=== PATIENT | male | born 1955 | race African-American/Black ===

== ENCOUNTER 2019-03-12 12:21 | Inpatient (IN) | payer MEDICAID ==
[~2019-03-12] VITALS: Ht 175.3 cm; Wt 79.8 kg
[~2019-03-12 12:21] MED LIST: ALBU18HF2 IH; DIAZ5TAB PO; DIVA250T4 PO; GLYB5TAB7 PO; HYDR-4009 MT; METF-414 PO; TIOT4MIS3 IH
[2019-03-12] MEDS ORDERED: IPRATROPIUM BROMIDE (0.02%) 0.5MG/2.5ML NEB HHN STA (13:03)
[2019-03-12] MEDS ORDERED: METHYLPREDNISOLONE SOD SUCC 125 MG/2 ML VIAL IV STA (13:03)
[2019-03-12] MEDS ORDERED: ALBUTEROL (0.083%) 2.5MG/3ML NEB HHN STA (13:03)
[2019-03-12 13:31] LABS: EOSINOPHILS % 2.6 % (0.0-5.0); HEMATOCRIT. 36.3 % (42.0-52.0); HEMOGLOBIN. 12.2 g/dL (14.0-18.0); LYMPHOCYTES % 43.1 % (20.0-50.0); MEAN CORPUSCULAR HEMOGLOBIN 29.5 pg (28.0-32.0); MEAN CORPUSCULAR VOLUME 87.6 fL (80.0-94.0); MEAN PLATELET VOLUME 7.7 fl (7.4-10.4); MONOCYTES % 7.8 % (2.0-8.0); NEUTROPHILS % 45.5 % (40.0-76.0); PLATELET 249 x1000/uL (130-400); RED BLOOD CELL COUNT 4.14 mill/uL (4.7-6.1); RED CELL DISTRIBUTION WIDTH 14.5 % (11.6-14.6)
[2019-03-12 13:45] LABS: CHLORIDE 102 mEq/L (98-107)
[2019-03-12] MEDS ORDERED: FUROSEMIDE 40MG/4ML VIAL IV ONE (14:15)
[2019-03-12] MEDS ORDERED: LEVOFLOXACIN 750MG PREMIX 150 ML IV ONE (15:15)
[2019-03-12 15:33] LABS: BG CARBOXYHEMOGLOBIN 0.1 % (0.5-1.5); BG DEOXYHEMOGLOBIN 2.4 % (0.0-5.0); BG FRACTION INSPIRED OXYGEN 21; BG HCO3 ACT 25.2 mmol/L (22.0-26.0); BG METHEMOGLOBIN 0.1 % (0.0-1.5); BG OXYGEN SATURATION 97.6 % (92.0-98.5); BG OXYHEMOGLOBIN 97.4 % (94.0-97.0); BG PCO2 38.6 mmHg (35.0-45.0); BG PH 7.432 (7.350-7.450); BG PO2 99.2 mmHg (75.0-100.0); BG SAMPLE SITE RIGHT RADIAL; BG TOTAL HEMOGLOBIN 12.4 g/dL (12.0-18.0); BG VENT MODE ROOM AIR
[2019-03-12 15:36] LABS: *COCAINE SCREEN URINE PRESUMTIVE POSITIVE (NEGATIVE); CANNABINOID URINE SCREEN PRESUMTIVE POSITIVE (NEGATIVE); METHADONE URINE SCREEN NEGATIVE (NEGATIVE); OPIATES URINE SCREEN NEGATIVE (NEGATIVE); PHENCYCLIDINE URINE SCREEN NEGATIVE (NEGATIVE)
[2019-03-12 15:37] LABS: *AMPHETAMINES SCREEN URINE NEGATIVE (NEGATIVE); *BARBITURATES SCREEN URINE NEGATIVE (NEGATIVE); *BENZODIAZEPINES SCREEN URINE NEGATIVE (NEGATIVE)
[2019-03-12] MEDS ORDERED: KETOROLAC 15MG/ML VIAL IV ONE (15:45)
[2019-03-12] MEDS ORDERED: LORAZEPAM 2MG/ML CPJ IV ONE ×2 (15:45→21:00)
[2019-03-12] MEDS ORDERED: CLONIDINE 0.1MG TABLET PO PRN (16:15)
[2019-03-12] MEDS ORDERED: IPRATROPIUM/ALBUTEROL 0.5-3(2.5)MG/3ML NEB NEB PRN (16:15)
[2019-03-12] MEDS ORDERED: ONDANSETRON HCL 4MG/2ML INJ IV PRN (16:15)
[2019-03-12] MEDS ORDERED: ACETAMINOPHEN 325MG TABLET PO PRN (16:15)
[2019-03-12] MEDS ORDERED: GUAIFENESIN 200MG/10ML SUGAR FREE UDC PO PRN (16:15)
[2019-03-12] MEDS ORDERED: MAGNESIUM/ALUMINUM HYDROXIDE/SIMETHICONE 30ML UDC PO PRN (16:15)
[2019-03-12] MEDS ORDERED: DOCUSATE SODIUM 100MG CAPSULE PO PRN (16:15)
[2019-03-12] MEDS ORDERED: METHYLPREDNISOLONE SOD SUCC 125 MG/2 ML VIAL IV SCH ×2 (18:00→18:15)
[2019-03-12] MEDS: HYDROCODONE/ACETAMINOPHEN 5/325MG TABLET PO PRN (18:33)
[2019-03-12] MEDS: MORPHINE SULFATE 2 MG/ML CPJ (NOT FOR IM USE) IV PRN (20:40)
[2019-03-12] MEDS ORDERED: INSULIN REGULAR (HUMULIN R) 300UNITS/3ML SUBCUT ONE (20:45)
[2019-03-12] MEDS ORDERED: INSULIN REGULAR (HUMULIN R) 300UNITS/3ML IV ONE (21:00)
[2019-03-12 21:07] VITALS: BP 156/86
[2019-03-12] MEDS ORDERED: DEXTROSE 50% WATER 50ML SYRINGE IV PRN (22:00)
[2019-03-12] MEDS ORDERED: LORAZEPAM 2MG/ML CPJ IV PRN (22:00)
[2019-03-12] MEDS: BLOOD SUGAR DIAGNOSTIC STRIP TEST SCH (22:17)
[2019-03-12] MEDS: INSULIN LISPRO 100 UNITS/ML SUBCUT SCH (22:25)
[2019-03-12] MEDS ORDERED: INSULIN LISPRO 100 UNITS/ML SUBCUT NR (22:45)
[2019-03-12] MEDS: METHYLPREDNISOLONE SOD SUCC 125 MG/2 ML VIAL IV SCH (23:32)
[2019-03-13] VITALS (7 sets, daily range): BP systolic 135–156; BP diastolic 67–86
[2019-03-13] MEDS: IPRATROPIUM/ALBUTEROL 0.5-3(2.5)MG/3ML NEB NEB SCH ×4 (02:50→20:12)
[2019-03-13] MEDS: HYDROCODONE/ACETAMINOPHEN 5/325MG TABLET PO PRN ×2 (04:46→11:43)
[2019-03-13] MEDS: BLOOD SUGAR DIAGNOSTIC STRIP TEST SCH ×4 (05:45→20:47)
[2019-03-13] MEDS: METHYLPREDNISOLONE SOD SUCC 125 MG/2 ML VIAL IV SCH (06:00)
[2019-03-13] MEDS: INSULIN LISPRO 100 UNITS/ML SUBCUT SCH ×4 (06:22→20:51)
[2019-03-13] MEDS ORDERED: GLYBURIDE 5MG TABLET PO SCH (06:45)
[2019-03-13 07:27] LABS: BASOPHILS % 0.1 % (0.0-2.0); HEMATOCRIT. 39.5 % (42.0-52.0); HEMOGLOBIN. 13.1 g/dL (14.0-18.0); LYMPHOCYTES % 9.6 % (20.0-50.0); MEAN CORPUSCULAR VOLUME 87.5 fL (80.0-94.0); MEAN PLATELET VOLUME 8.3 fl (7.4-10.4); MONOCYTES % 1.5 % (2.0-8.0); NEUTROPHILS % 88.8 % (40.0-76.0); PLATELET 244 x1000/uL (130-400); RED BLOOD CELL COUNT 4.51 mill/uL (4.7-6.1); RED CELL DISTRIBUTION WIDTH 14.4 % (11.6-14.6)
[2019-03-13 07:37] LABS: CHLORIDE 99 mEq/L (98-107)
[2019-03-13 07:42] LABS: ETHANOL BLOOD < 10 mg/dL
[2019-03-13] MEDS: METFORMIN HCL 500MG TABLET PO SCH ×2 (07:56→17:02)
[2019-03-13] MEDS: MORPHINE SULFATE 2 MG/ML CPJ (NOT FOR IM USE) IV PRN ×2 (08:04→16:24)
[2019-03-13] MEDS: ENOXAPARIN 40MG/0.4ML SYR SUBCUT SCH (09:00)
[2019-03-13] MEDS: ASPIRIN 81MG EC TABLET PO SCH (09:12)
[2019-03-13] MEDS: AMLODIPINE 10MG TABLET PO SCH (09:12)
[2019-03-13] MEDS: FUROSEMIDE 40MG/4ML VIAL IVP SCH (11:42)
[2019-03-13] MEDS: METHYLPREDNISOLONE SOD SUCC 40 MG/ML VIAL IV SCH (11:43)
[2019-03-13] MEDS ORDERED: LEVOFLOXACIN 500MG PREMIX 100 ML IV SCH (15:00)
[2019-03-13] MEDS: LEVOFLOXACIN 500MG PREMIX 100 ML IV SCH (17:24)
[2019-03-14] VITALS: BP 114/59
[2019-03-14] MEDS: IPRATROPIUM/ALBUTEROL 0.5-3(2.5)MG/3ML NEB NEB SCH ×4 (02:29→21:13)
[2019-03-14 04:00] VITALS: BP_SYST 140; BP_DIAS 75; BP_DIAS 78
[2019-03-14] MEDS: METFORMIN HCL 500MG TABLET PO SCH ×2 (06:39→18:21)
[2019-03-14] MEDS: HYDROCODONE/ACETAMINOPHEN 5/325MG TABLET PO PRN ×2 (06:39→18:21)
[2019-03-14] MEDS: INSULIN LISPRO 100 UNITS/ML SUBCUT SCH ×4 (06:42→20:47)
[2019-03-14] MEDS: BLOOD SUGAR DIAGNOSTIC STRIP TEST SCH ×4 (06:45→20:29)
[2019-03-14 08:00] VITALS: BP 122/74
[2019-03-14] MEDS: FUROSEMIDE 40MG/4ML VIAL IVP SCH (10:26)
[2019-03-14] MEDS: METHYLPREDNISOLONE SOD SUCC 40 MG/ML VIAL IV SCH (10:27)
[2019-03-14] MEDS: AMLODIPINE 10MG TABLET PO SCH (10:27)
[2019-03-14] MEDS: ASPIRIN 81MG EC TABLET PO SCH (10:27)
[2019-03-14] MEDS: ENOXAPARIN 40MG/0.4ML SYR SUBCUT SCH (10:28)
[2019-03-14 12:00] VITALS: BP 101/78
[2019-03-14 16:00] VITALS: BP 138/79
[2019-03-14] MEDS: LEVOFLOXACIN 500MG PREMIX 100 ML IV SCH (18:21)
[2019-03-14 20:00] VITALS: BP 142/78
[2019-03-15] VITALS: BP 121/67
[2019-03-15] MEDS: IPRATROPIUM/ALBUTEROL 0.5-3(2.5)MG/3ML NEB NEB SCH ×4 (00:50→21:24)
[2019-03-15 04:00] VITALS: BP 134/78
[2019-03-15] MEDS: BLOOD SUGAR DIAGNOSTIC STRIP TEST SCH ×4 (06:28→20:39)
[2019-03-15] MEDS: METFORMIN HCL 500MG TABLET PO SCH ×2 (07:27→17:09)
[2019-03-15] MEDS: INSULIN LISPRO 100 UNITS/ML SUBCUT SCH ×4 (07:28→20:39)
[2019-03-15 08:00] VITALS: BP 134/91
[2019-03-15] MEDS: AMLODIPINE 10MG TABLET PO SCH (08:18)
[2019-03-15] MEDS: ASPIRIN 81MG EC TABLET PO SCH (08:18)
[2019-03-15] MEDS: METHYLPREDNISOLONE SOD SUCC 40 MG/ML VIAL IV SCH (08:18)
[2019-03-15] MEDS: ENOXAPARIN 40MG/0.4ML SYR SUBCUT SCH (08:18)
[2019-03-15] MEDS: FUROSEMIDE 40MG/4ML VIAL IVP SCH (08:18)
[2019-03-15] MEDS: HYDROCODONE/ACETAMINOPHEN 5/325MG TABLET PO PRN (11:30)
[2019-03-15 11:43] VITALS: BP 128/57
[2019-03-15 16:00] VITALS: BP 120/71
[2019-03-15] MEDS: LEVOFLOXACIN 500MG PREMIX 100 ML IV SCH (17:09)
[2019-03-15 20:00] VITALS: BP 132/86
[2019-03-16] VITALS: BP 122/65
[2019-03-16] MEDS: IPRATROPIUM/ALBUTEROL 0.5-3(2.5)MG/3ML NEB NEB SCH ×2 (03:07→08:30)
[2019-03-16 04:00] VITALS: BP 145/78
[2019-03-16] MEDS: BLOOD SUGAR DIAGNOSTIC STRIP TEST SCH ×2 (06:19→12:03)
[2019-03-16] MEDS: INSULIN LISPRO 100 UNITS/ML SUBCUT SCH ×2 (06:20→12:09)
[2019-03-16 08:00] VITALS: BP 127/84
[2019-03-16] MEDS: METFORMIN HCL 500MG TABLET PO SCH (08:15)
[2019-03-16] MEDS: FUROSEMIDE 40MG/4ML VIAL IVP SCH (09:58)
[2019-03-16] MEDS: METHYLPREDNISOLONE SOD SUCC 40 MG/ML VIAL IV SCH (09:58)
[2019-03-16] MEDS: ASPIRIN 81MG EC TABLET PO SCH (09:59)
[2019-03-16] MEDS: ENOXAPARIN 40MG/0.4ML SYR SUBCUT SCH (09:59)
[2019-03-16] MEDS: AMLODIPINE 10MG TABLET PO SCH (09:59)
[2019-03-16 12:00] VITALS: BP 126/90
== END 2019-03-16 13:35 | disposition home or self-care (01) | DRG 140 ==
LOC: ER 12:21 → 5WST 14:58 → ENRESERV 19:49
PROVIDERS: ADMIT Hospitalist; ATTEND Hospitalist
DX: J44.1 Chronic obstructive pulmonary disease with (acute) exacerbation (principal); E11.40 Type 2 diabetes mellitus with diabetic neuropathy, unspecified; I11.0 Hypertensive heart disease with heart failure; I50.9 Heart failure, unspecified; E11.65 Type 2 diabetes mellitus with hyperglycemia; F14.10 Cocaine abuse, uncomplicated; G89.4 Chronic pain syndrome; M19.90 Unspecified osteoarthritis, unspecified site; Z87.891 Personal history of nicotine dependence; T38.0X5A Adverse effect of glucocorticoids and synthetic analogues, initial encounter; Y92.89 Other specified places as the place of occurrence of the external cause; Z59.0 Homelessness; Z91.14 Patient's other noncompliance with medication regimen; Z79.84 Long term (current) use of oral hypoglycemic drugs
CPT/HCPCS: 36415; 36600; 71045; 80305; 80320; 82375; 82805; 82962; 83605; 83880; 84443; 84484; 93005; 93306; 93970; 94640; 99285; J1650; J1815; J1885; J1940; J1956; J2060; J2270; J2920; J2930; J7611; J7620; G0480

== ENCOUNTER 2019-04-17 23:54 | Emergency (ER) | payer MEDICAID ==
[~2019-04-17] VITALS: Ht 175.3 cm; Wt 75.0 kg
[2019-04-18] MEDS ORDERED: KETOROLAC 30MG/ML VIAL IV SCH (04:05)
[2019-04-18] MEDS ORDERED: HYDROCODONE/ACETAMINOPHEN 5/325MG TABLET PO SCH (04:05)
[2019-04-18 05:18] LABS: EOSINOPHILS % 1.3 % (0.0-5.0); HEMATOCRIT. 36.4 % (42.0-52.0); HEMOGLOBIN. 12.4 g/dL (14.0-18.0); LYMPHOCYTES % 52.3 % (20.0-50.0); MEAN CORPUSCULAR HEMOGLOBIN 29.2 pg (28.0-32.0); MEAN CORPUSCULAR VOLUME 85.4 fL (80.0-94.0); MEAN PLATELET VOLUME 7.6 fl (7.4-10.4); MONOCYTES % 10.3 % (2.0-8.0); NEUTROPHILS % 35.1 % (40.0-76.0); PLATELET 229 x1000/uL (130-400); RED BLOOD CELL COUNT 4.26 mill/uL (4.7-6.1); RED CELL DISTRIBUTION WIDTH 14.7 % (11.6-14.6)
[2019-04-18 05:30] LABS: CHLORIDE 103 mEq/L (98-107)
[2019-04-18 07:58] VITALS: BP 155/103
== END 2019-04-18 08:05 | disposition home or self-care (01) ==
LOC: ER 23:54
DX: J44.9 Chronic obstructive pulmonary disease, unspecified (principal); G62.9 Polyneuropathy, unspecified; M54.9 Dorsalgia, unspecified
CPT/HCPCS: 36415; 71045; 80053; 82962; 85025; 96374; 99284; J1885

== ENCOUNTER 2019-04-28 14:42 | Emergency (ER) | payer MEDICAID ==
[~2019-04-28] VITALS: Ht 175.3 cm; Wt 76.0 kg
[2019-04-28 15:28] VITALS: BP 210/104
== END 2019-04-28 17:14 | disposition home or self-care (01) ==
LOC: ER 14:53
DX: Z76.0 Encounter for issue of repeat prescription (principal); I11.0 Hypertensive heart disease with heart failure; I50.9 Heart failure, unspecified; E11.9 Type 2 diabetes mellitus without complications; J44.9 Chronic obstructive pulmonary disease, unspecified; M19.90 Unspecified osteoarthritis, unspecified site
CPT/HCPCS: 99283

== ENCOUNTER 2019-05-10 02:14 | Emergency (ER) | payer MEDICAID ==
[~2019-05-10] VITALS: Ht 175.3 cm; Wt 73.0 kg
[2019-05-10] MEDS ORDERED: IPRATROPIUM BROMIDE (0.02%) 0.5MG/2.5ML NEB HHN STA (03:52)
[2019-05-10] MEDS ORDERED: ALBUTEROL (0.083%) 2.5MG/3ML NEB HHN STA (03:52)
[2019-05-10] MEDS ORDERED: PREDNISONE 20MG TABLET PO STA (03:52)
[2019-05-10] MEDS ORDERED: GABAPENTIN 300MG CAPSULE PO ONE (04:00)
[2019-05-10 05:30] VITALS: BP 131/75
== END 2019-05-10 06:00 | disposition home or self-care (01) ==
LOC: ER 02:14
DX: J44.1 Chronic obstructive pulmonary disease with (acute) exacerbation (principal); G62.9 Polyneuropathy, unspecified; M25.511 Pain in right shoulder; I11.0 Hypertensive heart disease with heart failure; I50.9 Heart failure, unspecified; E11.9 Type 2 diabetes mellitus without complications; M19.90 Unspecified osteoarthritis, unspecified site; Z79.84 Long term (current) use of oral hypoglycemic drugs; Z98.890 Other specified postprocedural states; Z85.9 Personal history of malignant neoplasm, unspecified
CPT/HCPCS: 93005; 94640; 99283; J7512; J7611; Z7610

== ENCOUNTER 2019-06-09 14:39 | Emergency (ER) | payer MEDICAID ==
[~2019-06-09] VITALS: Ht 175.3 cm; Wt 75.0 kg
[2019-06-09 16:05] VITALS: BP 171/92
== END 2019-06-09 19:48 | disposition left against medical advice (07) ==
LOC: ER 14:39
DX: Z53.21 Procedure and treatment not carried out due to patient leaving prior to being seen by health care provider (principal)

== ENCOUNTER 2019-06-10 12:02 | Emergency (ER) | payer MEDICAID ==
[~2019-06-10] VITALS: Ht 180.3 cm; Wt 72.5 kg
[2019-06-10 12:46] VITALS: BP 168/95
== END 2019-06-10 14:02 | disposition home or self-care (01) ==
LOC: ER 12:02
DX: G89.29 Other chronic pain (principal); M54.5 Low back pain; J44.0 Chronic obstructive pulmonary disease with (acute) lower respiratory infection; E11.9 Type 2 diabetes mellitus without complications; M19.90 Unspecified osteoarthritis, unspecified site; G62.9 Polyneuropathy, unspecified; Z85.9 Personal history of malignant neoplasm, unspecified; Z87.891 Personal history of nicotine dependence
CPT/HCPCS: 99283

== ENCOUNTER 2021-10-05 00:24 | Emergency (ER) | payer MEDICARE, MEDICAID ==
[~2021-10-05] VITALS: Ht 172.7 cm; Wt 80.0 kg
[2021-10-05] MEDS ORDERED: HYDROCODONE/ACETAMINOPHEN 5/325MG TABLET PO ONE (01:45)
[2021-10-05 02:18] VITALS: BP 158/86
[2021-10-05] MEDS ORDERED: DIVA250T4 PO (02:24)
[2021-10-05] MEDS ORDERED: ALBU18HF2 IH (02:24)
[2021-10-05] MEDS ORDERED: GLYB5TAB7 PO (02:24)
[2021-10-05] MEDS ORDERED: METF-414 PO (02:24)
[2021-10-05] MEDS ORDERED: TIOT4MIS3 IH (02:24)
== END 2021-10-05 05:36 | disposition home or self-care (01) ==
LOC: ER 00:24
DX: G89.29 Other chronic pain (principal); M79.672 Pain in left foot; M79.671 Pain in right foot; E11.9 Type 2 diabetes mellitus without complications; Z76.0 Encounter for issue of repeat prescription; Z98.890 Other specified postprocedural states
CPT/HCPCS: 99283